=== PATIENT | female | born 1985 | race African-American/Black ===

== ENCOUNTER 2017-02-15 22:03 | Emergency (ER) | payer OTHER ==
[2017-02-15 22:14] VITALS: BP 111/65; PULSE 88; TEMP 98.1; BMI 29.2
--- NOTE | 2017-02-15 22:42 | PDOC ---
History of Present Illness - General History Source: Patient Exam Limitations: No Limitations - History of Present Illness Initial Comments: 02/15/17 22:57 The patient is a 31 year old female with no significant past medical history, presenting to the Emergency Department with rash to the hands. The patient reports that she noticed a rash on the palm of her left hand a few days ago. She describes the rash as itchy, and small raised bumps. She reports that since then the rash has spread to her wrist and right hand. She admits that she has previously had a similar rash. The patient reports that she is . The patient denies nausea, vomiting, and diarrhea. Patient denies cough, fever, and chills. Patient denies neck pain, or back pain. Patient denies vaginal discharge, or dysuria. <Vidya Paez - Last Filed: 02/15/17 22:57> <Nancy Duval - Last Filed: 02/16/17 02:15> - General Chief Complaint: Rash Stated Complaint: RASH Time Seen by Provider: 02/15/17 22:41 Past History <Vidya Paez - Last Filed: 02/15/17 22:57> - Surgical History Orthopedic Surgery: Yes (LEFT MANDIBLE FRACTURE) - Psycho/Social/Smoking Cessation Hx Anxiety: No Suicidal Ideation: No Smoking Status: Yes Smoking History: Former smoker Have you smoked in the past 12 months: Yes Number of Cigarettes Smoked Daily: 3 If you are a former smoker, when did you quit?: 2016 Information on smoking cessation initiated: No 'Breaking Loose' booklet given: 06/06/15 Hx Alcohol Use: No Drug/Substance Use Hx: No Substance Use Type: None <Nancy Duval - Last Filed: 02/16/17 02:15> - Past Medical History Allergies/Adverse Reactions: Allergies Allergy/AdvReac Type Severity Reaction Status Date / Time codeine [Codeine] Allergy Hives Verified 02/15/17 22:12 Home Medications: Ambulatory Orders Permethrin [Elimite] 60 gm TP ONCE #60 cream..g. 02/15/17 Review of Systems - Review of Systems Able to Perform ROS?: Yes Comments:: 02/15/17 22:58 GENERAL/CONSTITUTIONAL: No fever or chills. No weakness. HEAD, EYES, EARS, NOSE AND THROAT: No change in vision. No ear pain or discharge. No sore throat. CARDIOVASCULAR: No chest pain or shortness of breath. RESPIRATORY: No cough, wheezing, or hemoptysis. GASTROINTESTINAL: No nausea, vomiting, diarrhea or constipation. GENITOURINARY: No dysuria, frequency, or change in urination. MUSCULOSKELETAL: No joint or muscle swelling or pain. No neck or back pain. SKIN: + rash to hands and wrists NEUROLOGIC: No headache, vertigo, loss of consciousness, or change in strength/ sensation. ENDOCRINE: No increased thirst. No abnormal weight change. HEMATOLOGIC/LYMPHATIC: No anemia, easy bleeding, or history of blood clots. ALLERGIC/IMMUNOLOGIC: No hives or skin allergy. <Vidya Paez - Last Filed: 02/15/17 22:57> *Physical Exam - Vital Signs Last Vital Signs Temp Pulse Resp BP Pulse Ox 98.1 F 88 18 111/65 99 02/15/17 22:12 02/15/17 22:12 02/15/17 22:12 02/15/17 22:12 02/15/17 22:12 - Physical Exam Comments: 02/15/17 22:58 GENERAL: Awake, alert, and fully oriented, in no acute distress HEAD: No signs of trauma EYES: PERRLA, EOMI, sclera anicteric, conjunctiva clear ENT: Auricles normal inspection, hearing grossly normal, nares patent, oropharynx clear without exudates. Moist mucosa EXTREMITIES: Normal range of motion, no edema. No clubbing or cyanosis. No cords, erythema, or tenderness NEUROLOGICAL: Cranial nerves II through XII grossly intact. Normal speech, normal gait SKIN: Scabies rash to the hands, in the web spaces of the fingers, and wrists. Warm, Dry, normal turgor, no lesions noted. <Vidya Paez - Last Filed: 02/15/17 22:57> - Vital Signs Last Vital Signs Temp Pulse Resp BP Pulse Ox 98.1 F 88 18 111/65 99 02/15/17 22:12 02/15/17 22:12 02/15/17 22:12 02/15/17 22:12 02/15/17 22:12 <Nancy Duval - Last Filed: 02/16/17 02:15> Medical Decision Making - Medical Decision Making 02/16/17 02:13 Pt comes with scabies in her web spaces, on hands and arms. SHe had this in the recent past and is upset that the cream didn;t work. I explained to her that she needs to wash all bedclothes with hot water. She is . Permethrin (elimite) is preg category B I discussed this with the patient. She will follow with her own doctors. She knows to use the meds, and to repeat in a week and to wash the clothes and flip mattress and clean the home. <Nancy Duval - Last Filed: 02/16/17 02:15> *DC/Admit/Observation/Transfer - Attestations Scribe Attestion: 02/15/17 22:58 Documentation prepared by Vidya Paez, acting as medical laboratory specialist for Nancy Duval MD. <Vidya Paez - Last Filed: 02/15/17 22:57> - Discharge Dispostion Admit: No <Nancy Duval - Last Filed: 02/16/17 02:15> Diagnosis at time of Disposition: Scabies, - Discharge Dispostion Disposition: HOME - Prescriptions Prescriptions: Permethrin [Elimite] 60 gm TP ONCE #60 cream..g. - Referrals Referrals: Chilo Hurtado [Primary Care Provider] - - Patient Instructions Printed Discharge Instructions: DI for Scabies
== END 2017-02-15 23:03 | disposition home or self-care (01) ==
LOC: JER 22:03
DX: B86 Scabies (principal); Z3A.00 Weeks of gestation of pregnancy not specified
CPT/HCPCS: 99281-25

== ENCOUNTER 2022-03-13 04:41 | Day surgery (SDC) | payer OTHER ==
[2022-03-07 16:09] VITALS: BMI 29.0
[2022-03-13 10:29] VITALS: TEMP 97.5
[2022-03-13 11:00] VITALS: BP 117/80; PULSE 88
== END 2022-03-13 11:05 | disposition home or self-care (01) ==
LOC: JASU-ENDO 04:41
PROVIDERS: ATTEND Internal Medicine Gastroenterology
PROC: 0DJD8ZZ Inspection of Lower Intestinal Tract, Via Natural or Artificial Opening Endoscopic (ICD-10-PCS; principal; 2022-03-13 10:00)
DX: K62.5 Hemorrhage of anus and rectum (principal); K64.8 Other hemorrhoids
CPT/HCPCS: 81025

== ENCOUNTER 2025-09-11 15:31 | Emergency (ER) | payer OTHER ==
[2025-09-11 15:49] VITALS: TEMP 98.2; BMI 30.7
[2025-09-11 16:41] LABS: URINE APPEARANCE Clear; URINE BILIRUBIN Negative (NEGATIVE); URINE COLOR Yellow; URINE GLUCOSE (UA) Negative (NEGATIVE); URINE KETONE Negative (NEGATIVE); URINE LEUK ESTERASE Negative (NEGATIVE); URINE NITRITE Negative (NEGATIVE); URINE PROTEIN Negative (NEGATIVE); URINE UROBILINOGEN 1.0 mg/dL (0.2-1.0)
[2025-09-11 17:10] LABS: HCG,QUALITATIVE URINE Negative
[2025-09-11 17:20] VITALS: BP 116/84; PULSE 90; RESP 18
== END 2025-09-11 17:53 | disposition home or self-care (01) ==
LOC: JER 15:31
DX: S63.501A Unspecified sprain of right wrist, initial encounter (principal); S80.02XA Contusion of left knee, initial encounter; M25.69 Stiffness of other specified joint, not elsewhere classified; M43.6 Torticollis; V87.7XXA Person injured in collision between other specified motor vehicles (traffic), initial encounter; Y92.410 Unspecified street and highway as the place of occurrence of the external cause
CPT/HCPCS: 73110-TC-RT-FY; 73130-TC-RT-FY; 73562-TC-LT-FY; 81003; 84703; 87086; 99284-25